=== PATIENT | male | born 1990 | race Caucasian/White ===

== ENCOUNTER 2017-12-25 15:45 | Emergency (ER) | payer OTHER ==
[~2017-12-25] VITALS: Ht 182.9 cm; Wt 97.2 kg
[2017-12-25 15:50] VITALS: BP 151/97
[2017-12-25] MEDS ORDERED: ONDANSETRON ODT 4 MG ONE (16:23)
[2017-12-25] MEDS ORDERED: MORPHINE SULFATE 4 MG/ML, 1ML ONE (16:23)
[2017-12-25 16:28] LABS: BASOPHILS # (AUTO) 0.08 x10^3/uL (0-0.1); BASOPHILS % (AUTO) 1 % (0-1); EOSINOPHILS # (AUTO) 0.06 x10^3/uL (0-0.4); EOSINOPHILS % (AUTO) 1 % (1-7); LYMPHOCYTES # (AUTO) 3.56 x10^3/uL (1-3.4); LYMPHOCYTES % (AUTO) 30 % (22-44); MD NO; MEAN CORPUSCULAR HEMOGLOBIN 30.5 pg (27.5-34.5); MEAN CORPUSCULAR HGB CONC 33.8 g/dL (33.2-36.2); MEAN CORPUSCULAR VOLUME 90.1 fL (81-97); MEAN PLATELET VOLUME 8.6 fL (7.4-10.4); MONOCYTES # (AUTO) 0.48 x10^3/uL (0.2-0.8); MONOCYTES % (AUTO) 4 % (2-9); NEUTROPHILS # (AUTO) 7.51 x10^3/uL (1.8-6.8); NEUTROPHILS % (AUTO) 64 % (42-75); PLATELET COUNT 282 x10^3/uL (130-400); RED BLOOD COUNT 5.05 x10^6/uL (4.38-5.82); RED CELL DISTRIBUTION WIDTH 13.2 % (9.4-14.8)
[2017-12-25] MEDS ORDERED: MORPHINE SULFATE 4 MG/ML, 1ML IVPush PRN (16:30)
[2017-12-25] MEDS ORDERED: SODIUM CHLORIDE FLUSH 10ML SYR IVF ONE (16:30)
[2017-12-25] MEDS ORDERED: ONDANSETRON ODT 4 MG PO ONE (16:30)
[2017-12-25 16:38] LABS: ANION GAP 9 mmol/L (5-15); CALCIUM 8.9 mg/dL (8.5-10.1); CHLORIDE 100 mmol/L (98-107); CREATININE 1.15 mg/dL (0.7-1.3)
[2017-12-25 16:42] LABS: TROPONIN I < 0.015 ng/mL (0.000-0.045)
== END 2017-12-25 18:02 | disposition home or self-care (01) ==
LOC: ED 16:43
DX: R07.89 Other chest pain (principal)
CPT/HCPCS: 36415; 71046; 71275; 80048; 82040; 84484; 85025; 93005; 99285; Q0162

== ENCOUNTER 2018-04-20 22:11 | Emergency (ER) | payer OTHER ==
[~2018-04-20] VITALS: Ht 182.9 cm; Wt 92.6 kg
[2018-04-20 22:12] VITALS: BP 136/81
--- NOTE | 2018-04-20 22:20 | NUR ---
PT PRESENTED WITH C/O LEFT WRIST PAIN, PT STATED HE WAS D/X WITH CONTUSION ON WRIST IN [facility] [place]. PT SITTING ON GURNEY, CALL LIGHT WITHIN REACH, AWAITING PA FOR EVAL AND ORDERS
[2018-04-20] MEDS ORDERED: LEVO125T PO (22:24)
--- NOTE | 2018-04-20 22:59 | NUR ---
[employer] F[employer]ER AT BEDSIDE FOR LEFT WRIST SPLINT APPLICATION
== END 2018-04-20 23:50 | disposition home or self-care (01) ==
LOC: ED 23:46
DX: M25.532 Pain in left wrist (principal)
CPT/HCPCS: 29125; 99283

== ENCOUNTER 2018-06-27 04:46 | Emergency (ER) | payer OTHER ==
[~2018-06-27] VITALS: Ht 182.9 cm; Wt 91.0 kg
[~2018-06-27 04:46] MED LIST: LEVO125T PO
[2018-06-27 04:51] VITALS: BP 145/92
--- NOTE | 2018-06-27 04:56 | NUR ---
PLUMBER APPRENTICE: PT IS NEGATIVE ON THE STROKE SCALE. NO CODE NEURO PER DR KAHN
[2018-06-27 05:50] LABS: BASOPHILS # (AUTO) 0.13 x10^3/uL (0-0.1); BASOPHILS % (AUTO) 1 % (0-1); EOSINOPHILS # (AUTO) 0.13 x10^3/uL (0-0.4); EOSINOPHILS % (AUTO) 1 % (1-7); LYMPHOCYTES # (AUTO) 3.69 x10^3/uL (1-3.4); LYMPHOCYTES % (AUTO) 39 % (22-44); MD NO; MEAN CORPUSCULAR HEMOGLOBIN 31.7 pg (27.5-34.5); MEAN CORPUSCULAR HGB CONC 34.6 g/dL (33.2-36.2); MEAN CORPUSCULAR VOLUME 91.8 fL (81-97); MONOCYTES # (AUTO) 0.46 x10^3/uL (0.2-0.8); MONOCYTES % (AUTO) 5 % (2-9); NEUTROPHILS # (AUTO) 5.13 x10^3/uL (1.8-6.8); NEUTROPHILS % (AUTO) 54 % (42-75); PLATELET COUNT 240 x10^3/uL (130-400); RED BLOOD COUNT 5.01 x10^6/uL (4.38-5.82); RED CELL DISTRIBUTION WIDTH 12.9 % (9.4-14.8)
[2018-06-27 05:56] LABS: ALANINE AMINOTRANSFERASE 33 U/L (12-78); ALBUMIN 3.7 g/dL (3.4-5.0); ANION GAP 6 mmol/L (5-15); CALCIUM 8.7 mg/dL (8.5-10.1); CHLORIDE 109 mmol/L (98-107); CREATININE 1.13 mg/dL (0.7-1.3)
[2018-06-27 06:06] LABS: ALKALINE PHOSPHATASE 81 U/L (45-117); BILIRUBIN,TOTAL 0.4 mg/dL (0.2-1.0); TOTAL PROTEIN 6.6 g/dL (6.4-8.2)
== END 2018-06-27 06:27 | disposition home or self-care (01) ==
LOC: ED 05:34
DX: R20.2 Paresthesia of skin (principal); E03.9 Hypothyroidism, unspecified
CPT/HCPCS: 36415; 70450; 80053; 84443; 85025; 99284

== ENCOUNTER 2018-07-24 00:35 | Emergency (ER) | payer OTHER ==
[~2018-07-24] VITALS: Ht 182.9 cm; Wt 88.6 kg
[2018-07-24 00:38] VITALS: BP 142/97
[2018-07-24] MEDS ORDERED: IBUPROFEN 800 MG TABLET PO ONE (01:00)
[2018-07-24] MEDS ORDERED: IBUPROFEN 800 MG TABLET ONE (01:45)
--- NOTE | 2018-07-24 01:48 | NUR ---
SLEEPING QUIETLY AT THIS TIME, AWAKENED AND MEDICATED FOR PAIN
== END 2018-07-24 02:41 | disposition home or self-care (01) ==
LOC: ED 02:35
DX: S10.93XA Contusion of unspecified part of neck, initial encounter (principal); E03.9 Hypothyroidism, unspecified; X58.XXXA Exposure to other specified factors, initial encounter; Y93.89 Activity, other specified; Y92.89 Other specified places as the place of occurrence of the external cause; Y99.8 Other external cause status
CPT/HCPCS: 70490; 99284

== ENCOUNTER 2018-08-16 11:02 | Emergency (ER) | payer OTHER ==
[~2018-08-16] VITALS: Ht 182.9 cm; Wt 88.9 kg
--- NOTE | 2018-08-16 11:15 | NUR ---
PT PRESENTED TO ED WITH FACIAL NUMBNESS X 2 HOURS. PT STATED THAT HE HAS NOT BEEN ON HIS THYROID MEDICATIONS FOR YEARS. PT STATES HE IS UNDER STRESS. PT PLACED ON BP AND CONT. PULSE OXIMETER. ASSESSMENT COMPLETED. MD AT BEDSIDE.
--- NOTE | 2018-08-16 11:30 | NUR ---
PT STATES HE IS VERY STRESSED, HE HAS NO MONEY, HE HAS NO FAMILY OR FRIENDS, AND WANTS TO GO BACK TO [place]
[2018-08-16 11:41] LABS: BASOPHILS # (AUTO) 0.06 x10^3/uL (0-0.1); BASOPHILS % (AUTO) 1 % (0-1); EOSINOPHILS # (AUTO) 0.17 x10^3/uL (0-0.4); EOSINOPHILS % (AUTO) 2 % (1-7); LYMPHOCYTES # (AUTO) 4.24 x10^3/uL (1-3.4); LYMPHOCYTES % (AUTO) 44 % (22-44); MD NO; MEAN CORPUSCULAR HEMOGLOBIN 32.3 pg (27.5-34.5); MEAN CORPUSCULAR HGB CONC 34.1 g/dL (33.2-36.2); MEAN CORPUSCULAR VOLUME 94.7 fL (81-97); MEAN PLATELET VOLUME 8.9 fL (7.4-10.4); MONOCYTES % (AUTO) 4 % (2-9); NEUTROPHILS # (AUTO) 4.81 x10^3/uL (1.8-6.8); NEUTROPHILS % (AUTO) 50 % (42-75); PLATELET COUNT 240 x10^3/uL (130-400); RED BLOOD COUNT 4.95 x10^6/uL (4.38-5.82); RED CELL DISTRIBUTION WIDTH 12.6 % (9.4-14.8)
--- NOTE | 2018-08-16 11:43 | NUR ---
PT DENIES SUICIDE AND DENIES HOMICIDE
[2018-08-16 11:52] LABS: ALBUMIN 3.4 g/dL (3.4-5.0); ANION GAP 7 mmol/L (5-15); CALCIUM 8.3 mg/dL (8.5-10.1); CHLORIDE 107 mmol/L (98-107); CREATININE 1.29 mg/dL (0.7-1.3)
[2018-08-16 12:55] VITALS: BP 127/76
== END 2018-08-16 12:57 | disposition home or self-care (01) ==
LOC: ED 12:51
DX: R20.2 Paresthesia of skin (principal); E83.51 Hypocalcemia; F17.200 Nicotine dependence, unspecified, uncomplicated; E03.9 Hypothyroidism, unspecified
CPT/HCPCS: 36415; 80048; 82040; 82330; 83735; 85025; 99283

== ENCOUNTER 2018-09-26 22:21 | Emergency (ER) | payer OTHER ==
[~2018-09-26] VITALS: Ht 182.9 cm; Wt 85.5 kg
[2018-09-26 22:24] VITALS: BP 124/85
--- NOTE | 2018-09-26 23:15 | NUR ---
NOT IN LOBBY
--- NOTE | 2018-09-26 23:27 | NUR ---
NOT IN LOBBY
--- NOTE | 2018-09-26 23:48 | NUR ---
NOT IN LOBBY
== END 2018-09-26 23:50 | disposition left against medical advice (07) ==
LOC: ED 23:40
DX: R07.89 Other chest pain (principal)
CPT/HCPCS: 93005; 99281

== ENCOUNTER 2019-10-09 02:53 | Emergency (ER) | payer MEDICAID ==
[~2019-10-09] VITALS: Ht 180.3 cm; Wt 77.1 kg
[2019-10-09 02:56] VITALS: BP 119/89
== END 2019-10-09 03:37 | disposition home or self-care (01) ==
LOC: ED 03:23
DX: S40.812A Abrasion of left upper arm, initial encounter (principal); E03.9 Hypothyroidism, unspecified; F17.200 Nicotine dependence, unspecified, uncomplicated; Z77.21 Contact with and (suspected) exposure to potentially hazardous body fluids; X58.XXXA Exposure to other specified factors, initial encounter; Y93.89 Activity, other specified; Y92.89 Other specified places as the place of occurrence of the external cause; Y99.8 Other external cause status
CPT/HCPCS: 99281